=== PATIENT | female | born 1990 | race Caucasian/White ===

== ENCOUNTER 2016-08-19 14:41 | Emergency (ER) ==
[2016-08-19 14:51] VITALS: BP 127/82; TEMP 100.1; BMI 29.3
[2016-08-19] MEDS ORDERED: SODIUM CHLORIDE 1,000 ML IV STA (14:56)
--- NOTE | 2016-08-19 15:04 | ED.PDOC ---
General ED Provider: Dr. RONEL MULLINS Chief Complaint: Weakness Stated Complaint: Weak, light headed, nauseated. Working outdoors - hot, came indoors, felt worse. Time Seen by Physician: 14:55 Mode of Arrival: Walk-In Information Source: Patient Primary Care Provider: NAN [facility] Nursing and Triage Documentation Reviewed and Agree: Yes Neurological Complaint Exam - Weakness Complaint/Exam Last Known Well: 2 days ago Onset: Sudden Duration: Today; working outdoors - hot; is 7 weeks with morning sickness. Symptoms Are: Still present (Also had cough yesterday) Timing: Constant (Last few hours) Character: Reports: Lightheaded, Weak Aggravating: Reports: Exertion (Activity at work outdoors with hot environmental temperature today) Alleviating: Reports: None Associated Signs and Symptoms: Reports: Nausea, Unsteady gait, Loss of balance Cardiac Risk Factors: Reports: None CVA Risk Factors: Reports: None Review of Systems - Review Of Systems Constitutional: Reports: Malaise, Weakness, Sweats Ears, Nose, Mouth, Throat: Reports: No symptoms Respiratory: Reports: Cough (Yesterday) Cardiac: Reports: No symptoms GI: Reports: Nausea (Has had "morning sickness") Neurological: Reports: Headache All Other Systems: Reviewed and Negative Past Medical History - Past Medical History Previously Healthy: Yes Endocrine: Reports: None Cardiovascular: Reports: None Respiratory: Reports: None Hematological: Reports: None Gastrointestinal: Reports: None Genitourinary: Reports: None Neuro/Psych: Reports: None Musculoskeletal: Reports: None Cancer: Reports: None Last Menstrual Period: june 2016 - Surgical History General Surgical History: Reports: Cholecystectomy - Family History Family History: Reports: None - Social History Smoking Status: Current every day smoker, Light tobacco smoker Hx Substance Use: No Alcohol Screening: None Physical Exam - Physical Exam Appearance: Ill-appearing Ill-appearing: Mild Eyes: AYE, EOMI ENT: Nose normal, Oropharynx normal Neck: Supple Respiratory: Airway patent, Breath sounds clear, Respirations nonlabored Cardiovascular: RRR, Pulses normal GI/: Soft, Nontender Musculoskeletal: Normal strength, ROM intact Skin: Warm, Dry, Normal color Neurological: Sensation intact, Motor intact, Alert, Oriented Psychiatric: Affect appropriate Critical Care Note - Critical Care Note Total Time (mins): 25 Course - Course Orders, Labs, Meds: Lab Review 08/19/16 15:00 Urine Color Yellow Urine Clarity Slightly Urine pH 5.5 Ur Specific [place] 1.025 Urine Protein Negative Urine Glucose (UA) Negative Urine Ketones Negative Urine Blood Negative Urine Nitrite Negative Urine Bilirubin Negative Urine Urobilinogen 0.2 Ur Leukocyte Esterase Trace Urine Microscopic WBC 10-20 Ur Squamous Epith Cells 0-2 Urine Bacteria 2+ Orders Category Date Time Status URINALYSIS C & S IF INDICATED Stat LAB 08/19/16 15:00 Completed URINE CULTURE Routine LAB 08/19/16 15:50 Received Sodium Chloride 0.9% [Sodium Chloride] 1,000 ml MEDS 08/19/16 14:56 Discontinued IV BOLUS Medications Discontinued Medications Generic Name Dose Route Start Last Admin Trade Name Freq PRN Reason Stop Dose Admin Sodium Chloride 1,000 mls @ 1,000 mls/hr 08/19/16 14:56 08/19/16 15:20 Sodium Chloride IV 08/19/16 15:55 1,000 mls/hr BOLUS STA Administration Vital Signs: Temp Pulse Resp BP Pulse Ox 08/19/16 14:42 100.1 F H 113 H 20 127/82 98 Departure - Departure Time of Disposition: 16:13 Disposition: HOME SELF-CARE Discharge Problem: Dehydration Instructions: Dehydration (ED), Heat Exhaustion (ED) Condition: Good Pt referred to PMD for follow-up: Yes (Call; let them know how you are doing) Additional Instructions: Small amounts of fluids or jello frequently over next 12 hours. Call primary care to let them know of your ER visit. Take any medications that they have prescribed for you. At this time in the ER it does not appear that you have a Urinary Tract Infection. Allergies/Adverse Reactions: Allergies No Known Allergies Allergy (Unverified 08/19/16 14:52) Home Medications: Ambulatory Orders [id number]/FA/Omega3/Dha/Fish Oil [ Gummies] 1 each PO DAILY 08/19/16 Disposition Discussed With: Patient
[2016-08-19 15:37] LABS: BILIRUBIN,URINE Negative (NEGATIVE); KETONES,URINE Negative (NEGATIVE); LEUKOCYTE ESTERASE ,URINE Trace (NEGATIVE); NITRITE,URINE Negative (NEGATIVE); PH,URINE 5.5 (5-9); PROTEIN,URINE Negative (NEGATIVE); URINE, BLOOD Negative (NEGATIVE)
[2016-08-19 15:41] LABS: ADD URINE MICROSCOPIC YES
[2016-08-19 15:48] LABS: BACTERIA,URINE 2+ (NOT PRESENT)
== END 2016-08-19 16:29 | disposition home or self-care (01) ==
LOC: ED 14:41
DX: E86.0 Dehydration (principal); Z33.1 Pregnant state, incidental; F17.210 Nicotine dependence, cigarettes, uncomplicated
CPT/HCPCS: 81001; 87086; 87186; 96360; 99282

== ENCOUNTER 2016-09-02 11:12 | Emergency (ER) ==
[2016-09-02 11:17] VITALS: BP 131/70; TEMP 99.1; BMI 30.1
[2016-09-02 12:19] LABS: BILIRUBIN,URINE Negative (NEGATIVE); KETONES,URINE Negative (NEGATIVE); LEUKOCYTE ESTERASE ,URINE Negative (NEGATIVE); NITRITE,URINE Negative (NEGATIVE); PH,URINE 5.5 (5-9); PROTEIN,URINE Negative (NEGATIVE); URINE, BLOOD 1+ (NEGATIVE)
[2016-09-02 12:24] LABS: ADD URINE MICROSCOPIC YES
[2016-09-02 12:29] LABS: ALBUMIN 3.6 g/dL (3.4-5.0); ALBUMIN/GLOBULIN RATIO 1.2; ANION GAP 10.5; BILIRUBIN,TOTAL 0.36 mg/dL (0.00-1.20); BUN/CREATININE RATIO 22.03; CALCIUM 8.8 mg/dL (8.2-10.2); CREATININE 0.59 mg/dL (0.60-1.30); POTASSIUM 3.5 mmol/L (3.5-5.10); TOTAL PROTEIN 6.6 g/dL (6.4-8.2)
[2016-09-02 12:31] LABS: BACTERIA,URINE TRACE (NOT PRESENT)
--- NOTE | 2016-09-02 12:35 | US ---
EXAM: Ultrasound obstetrical transvaginal HISTORY: . Spotting COMPARISON: None available TECHNIQUE: Lawrence-scale and color Doppler images FINDINGS: Single intrauterine gestation noted with estimated gestational age of 6 weeks 1 day based on mean crown-rump length of 0.45 cm. No heart rate was susceptible. No color flow within th e pole identified. Yolk sac not seen. Amniotic fluid volume appears enlarged. Given the siz e of the pole. Uterus measures 8.5 x 5.1 x 5.9 cm. Right ovary measures 3.2 x 1.2 x 2 cm. Left ovary measures 3 x 1.9 x 2.1 cm. Both ovaries appear u nremarkable. No pelvic fluid collections or adnexal masses identified. IMPRESSION: Findings suspicious for intrauterine demise with no detectable cardiac activity, lack of yolk sac and large gestational sac. Correlate with beta HCG values and possible repeat ultrasound.
[2016-09-02 12:37] LABS: HEMATOCRIT 34.8 % (37.0-47.0); HEMOGLOBIN 12.1 g/dl (12.0-16.0); MEAN CORPUSCULAR HEMOGLOBIN 30.1 pg (27.0-31.0); MEAN CORPUSCULAR HGB CONC 34.8 (31.8-35.4); MEAN CORPUSCULAR VOLUME 86.6 fl (81.0-99.0); PLATELET COUNT 160 10^3/uL (140-440); RED BLOOD COUNT 4.02 10^6/ul (4.20-5.40)
[2016-09-02 12:38] LABS: ANISOCYTOSIS NOT PRESENT (NOT PRESENT)
[2016-09-02 13:54] LABS: PARTIAL THROMBOPLASTIN TIME 23.8 SEC (23.9-40.0); PROTHROMBIN TIME 10.2 SEC (9.3-11.0)
--- NOTE | 2016-09-02 13:54 | ED.PDOC ---
General ED Provider: Dr. TRENTON MAGAÑA Stated Complaint: VAGINAL SPOTTING Time Seen by Physician: 11:16 (SEEN WITH STAFF AT ALL TIMES NOTED MINOR BLEEDING AFTER INTERCOURSE 1 DAY AGO) Mode of Arrival: Walk-In Information Source: Patient Exam Limitations: No limitations Primary Care Provider: [facility] Nursing and Triage Documentation Reviewed and Agree: Yes (9 WEEKS FIRST ) CARE ADVOCATE Complaint Exam - Vaginal Bleeding Complaint/Exam Onset/Duration: 1 DAY DESCRIBED THE EXTENT OF BLEEDING TO HER USUAL MENSTURAL CYCLE Symptoms Are: Still present ([place]) Timing: Intermittent Initial Severity: Mild Current Severity: Mild Character: Reports: Dark red Aggravating: Reports: [place] Alleviating: Reports: Rest Associated Signs and Symptoms: Denies: Dizziness, Lightheadedness, Pale, UTI symptoms, Abdominal pain, Cramping, Generalized pain : 1 Para: 0 Ectopic Risk Factors: Reports: None Spontaneous AB Risk Factors: Reports: None Placental Abruption Risk Factors: Reports: None Patient Rh Status: Unknown Related Surgical History: Reports: None Abdominal Findings: Present: None Differential Diagnoses: Threatened AB, Incomplete AB Review of Systems - Review Of Systems Constitutional: Reports: No symptoms Eyes: Reports: No symptoms Ears, Nose, Mouth, Throat: Reports: No symptoms Respiratory: Reports: No symptoms Cardiac: Reports: No symptoms GI: Reports: No symptoms : Reports: Other (VAGINAL BLEEDING) Musculoskeletal: Reports: No symptoms Skin: Reports: No symptoms Neurological: Reports: No symptoms Endocrine: Reports: No symptoms Hematologic/Lymphatic: Reports: No symptoms All Other Systems: Reviewed and Negative Past Medical History - Past Medical History Previously Healthy: Yes Endocrine: Reports: None Cardiovascular: Reports: None Respiratory: Reports: None Hematological: Reports: None Gastrointestinal: Reports: None Genitourinary: Reports: None Neuro/Psych: Reports: None Musculoskeletal: Reports: None Cancer: Reports: None Last Menstrual Period: 06/17/16 - Surgical History General Surgical History: Reports: Cholecystectomy - Family History Family History: Reports: None - Social History Smoking Status: Current every day smoker, Light tobacco smoker Hx Substance Use: No Alcohol Screening: None Physical Exam - Physical Exam Appearance: Well-appearing, No pain distress, Well-nourished Eyes: AYE, EOMI, Conjunctiva clear ENT: Ears normal, Nose normal, Oropharynx normal Respiratory: Airway patent, Breath sounds clear, Breath sounds equal, Respirations nonlabored Cardiovascular: RRR, Pulses normal, No rub, No murmur GI/: Soft, Nontender, No masses, Bowel sounds normal, No Organomegaly Musculoskeletal: Normal strength, ROM intact, No edema, No calf tenderness Skin: Warm, Dry, Normal color Neurological: Sensation intact, Motor intact, Reflexes intact, Cranial nerves intact, Alert, Oriented Psychiatric: Affect appropriate, Mood appropriate Critical Care Note - Critical Care Note Total Time (mins): 0 Course - Course Hematology/Chemistry: 09/02/16 12:00 09/02/16 12:00 Orders, Labs, Meds: Lab Review 09/02/16 09/02/16 11:50 12:00 WBC 7.90 RBC 4.02 L Hgb 12.1 Hct 34.8 L MCV 86.6 MCH 30.1 MCHC 34.8 RDW Coeff of Edward 13.8 Plt Count 160 Neutrophils % (Manual) 82.0 H Lymphocytes % (Manual) 17.0 Monocytes % (Manual) 1.0 Anisocytosis Not present Sodium 138 Potassium 3.5 Chloride 107 Carbon Dioxide 24 Anion Gap 10.5 BUN 13 Creatinine 0.59 L Estimated GFR (MDRD) 124.00 BUN/Creatinine Ratio 22.03 Glucose 95 Calcium 8.8 Total Bilirubin 0.36 AST 15 ALT 15 Alkaline Phosphatase 49 Total Protein 6.6 Albumin 3.6 Globulin 3.0 Albumin/Globulin Ratio 1.20 HCG, Quant 9229.00 Urine Color Yellow Urine Clarity Clear Urine pH 5.5 Ur Specific [place] 1.025 Urine Protein Negative Urine Glucose (UA) Negative Urine Ketones Negative Urine Blood 1+ Urine Nitrite Negative Urine Bilirubin Negative Urine Urobilinogen 0.2 Ur Leukocyte Esterase Negative Urine Microscopic RBC 5-10 Urine Microscopic WBC 0-2 Ur Squamous Epith Cells 5-10 Amorphous Sediment Trace Urine Bacteria Trace Urine Mucus 1+ Orders Category Date Time Status CBC W/ AUTO DIFF Stat LAB 09/02/16 12:00 Completed COMPREHENSIVE METABOLIC PANEL Stat LAB 09/02/16 12:00 Completed HCG,QUANTITATIVE Stat LAB 09/02/16 12:00 Completed MANUAL DIFFERENTIAL Stat LAB 09/02/16 12:00 Completed PARTIAL THROMBOPLASTIN TIME Stat LAB 09/02/16 12:00 Received PT WITH INR Stat LAB 09/02/16 12:00 Received UA [URINALYSIS C & S IF INDICATED] Stat LAB 09/02/16 11:50 Completed ULTRASOUND OB/TV [U/S OB/TV] Stat RADS 09/02/16 11:28 Completed Vital Signs: Temp Pulse Resp BP Pulse Ox 09/02/16 11:13 99.1 F 94 H 16 131/70 98 Departure - Departure Time of Disposition: 13:55 (PT SEEN ALL TIMES WITH STAFF AND REPORT OF ULTRASOUND WAS GIVEN. PT WAS VERY UPSET ABOUT THE NEWS. AT 1:45PM MOTHER REQUESTED SECOND ULTRASOUND DURING WHICH TIME ANOTHER CRITICAL PT WAS BEING ASSESSED. I TOLD THE PT FAMILY THAT SECOND ULTRASOUND WAS NOT WARRANTED AT THIS TIME. HOWEVER I WOULD SPEAK TO OB AT [facility] AND WILL INFORM THEM SOON THIS CONTACT IS ACHIEVED. CHELSEA SPOKE TO FAMILY. THEY LEFT AMA. ) Disposition: AMA Discharge Problem: Bleeding from vagina Instructions: Peritonitis (ED), Miscarriage (ED) Condition: Good Pt referred to PMD for follow-up: Yes Allergies/Adverse Reactions: Allergies No Known Allergies Allergy (Verified 09/02/16 11:17) Home Medications: Ambulatory Orders [id number]/FA/Omega3/Dha/Fish Oil [ Gummies] 1 each PO DAILY 08/19/16
== END 2016-09-02 13:51 | disposition left against medical advice (07) ==
LOC: ED 11:12
DX: N93.9 Abnormal uterine and vaginal bleeding, unspecified (principal); Z33.1 Pregnant state, incidental
CPT/HCPCS: 36415; 80053; 81001; 84702; 85007; 85025; 85610; 85730; 99284

== ENCOUNTER 2016-10-11 12:19 | Inpatient (IN) ==
[2016-10-11] MEDS ORDERED: TYLENOL PO STA (12:48)
[2016-10-11] MEDS ORDERED: TYLENOL ONE (12:52)
[2016-10-11 13:13] LABS: BILIRUBIN,URINE Negative (NEGATIVE); KETONES,URINE Negative (NEGATIVE); LEUKOCYTE ESTERASE ,URINE 1+ (NEGATIVE); NITRITE,URINE Positive (NEGATIVE); PH,URINE 5.5 (5-9); PROTEIN,URINE 1+ (NEGATIVE); URINE, BLOOD 1+ (NEGATIVE)
[2016-10-11 13:20] LABS: BASOPHILS % (AUTO) 0.2 % (0.0-3.0); EOSINOPHILS % (AUTO) 0.1 % (0.0-7.0); HEMATOCRIT 38.6 % (37.0-47.0); HEMOGLOBIN 13.3 g/dl (12.0-16.0); IMMATURE GRANULOCYTE % (AUTO) 0.2 % (0.0-5.0); LYMPHOCYTES # (AUTO) 0.9 K/uL (0.60-3.4); LYMPHOCYTES % (AUTO) 10.2 (10.0-50.0); MEAN CORPUSCULAR HEMOGLOBIN 29.5 pg (27.0-31.0); MEAN CORPUSCULAR HGB CONC 34.5 (31.8-35.4); MEAN CORPUSCULAR VOLUME 85.6 fl (81.0-99.0); MONOCYTES # (AUTO) 0.7 K/uL (0.4-2.0); MONOCYTES % (AUTO) 8.2 (0-10); NEUTROPHILS # (AUTO) 6.7 K/ul (2.0-6.9); NEUTROPHILS % (AUTO) 81.1; PLATELET COUNT 165 10^3/uL (140-440); RED BLOOD COUNT 4.51 10^6/ul (4.20-5.40)
[2016-10-11 13:23] LABS: ADD URINE MICROSCOPIC YES
[2016-10-11 13:25] LABS: BACTERIA,URINE 4+ (NOT PRESENT)
[2016-10-11 13:28] LABS: ALBUMIN 3.7 g/dL (3.4-5.0); ALBUMIN/GLOBULIN RATIO 0.9; ANION GAP 14.9; BILIRUBIN,TOTAL 0.54 mg/dL (0.00-1.20); BUN/CREATININE RATIO 16.04; CALCIUM 9.6 mg/dL (8.2-10.2); CREATININE 0.81 mg/dL (0.60-1.30); POTASSIUM 3.9 mmol/L (3.5-5.10); TOTAL PROTEIN 7.8 g/dL (6.4-8.2)
[2016-10-11 13:29] LABS: SERUM PREGNANCY INTERNAL QC INTERNAL QC VALID
--- NOTE | 2016-10-11 13:53 | CT ---
Exam: CT abdomen and pelvis without IV contrast. Clinical indication: Abdominal pain. There are no prior studies available for comparison. TECHNIQUE: Axial unenhanced CT images of the abdomen and pelvis were obtained followed by coronal a nd sagittal reformats. The visualized portions of the lower thorax are within normal limits. There is no free intra-abdominal gas or fluid. There has been a prior cholecystectomy. The liver, adrenals, pancreas, and spleen are unremarkable, given the limitations of an unenhanced C T. There is some perinephric stranding around the right kidney around the proximal aspect of the right ureter. There is no obvious hydronephrosis. There are no definite renal calculi bilaterally, along the course of the bilateral ureters or within the urinary bladder. The bilateral kidneys are other campos unremarkable, given the limitations of an unenhanced CT. There are no enlarged abdominal or pelvic lymph nodes, by size criteria. The pelvic organs are grossly unremarkable, given the limitations of CT for evaluating them. The bowel, including the appendix, is unremarkable. The visualized bony structures are unremarkable for the patient's age. Impression: 1. Perinephric stranding around the right kidney which is a nonspecific finding and can be seen in the acute and chronic setting. In the acute setting this sometimes can be associated with inflammat ion such as infection. In the chronic setting and is of no clinical significance. 2. Otherwise unremarkable CT of the abdomen and pelvis, given the limitations of an unenhanced CT.
--- NOTE | 2016-10-11 13:54 | CT ---
Exam: CT lumbar spine without IV contrast. Clinical indication: Back pain. TECHNIQUE: Axial unenhanced CT images of the lumbar spine from the lower thoracic spine through the upper sacrum were obtained followed by coronal and sagittal reformats. Findings: There are five non-rib bearing lumbar vertebra. The alignment of the lumbar spine is within normal limits. There are no acute lumbar fractures. The disc spaces are well maintained. Although levels are within normal limits for the patient's age , without spinal stenosis or neural foraminal narrowing. The soft tissues were dictated separately. Impression: Unremarkable CT lumbar spine.
[2016-10-11] MEDS ORDERED: NORCO 10-325 PO STA (14:18)
--- NOTE | 2016-10-11 14:26 | ED.PDOC ---
General ED Provider: Dr. TRENTON MAGAÑA Chief Complaint: Fever Stated Complaint: back pain lumbar /fever Time Seen by Physician: 12:30 Mode of Arrival: Walk-In Information Source: Patient Exam Limitations: No limitations Primary Care Provider: NAN [facility] Nursing and Triage Documentation Reviewed and Agree: Yes Musculoskeletal Complaint Exam - Back Pain Complaint/Exam Mechanism of Injury: Reports: No known trauma Onset/Duration: 1 day Symptoms Are: Still present Timing: Constant Episodes Lasting: Hours Initial Severity: Moderate Current Severity: Moderate Character: Reports: Aching Aggravating: Reports: Cough Alleviating: Reports: Rest, Position Associated Signs and Symptoms: Reports: Fever, Flank pain. Denies: Swelling, Redness, Bruising, Weakness, Numbness, Tingling, Abdominal pain, Bladder incontinence, Bowel incontinence, Weight loss, Pain with weight bearing TAD Risk Factors: Reports: None AAA Risk Factors: Reports: None Cauda Equina Risk Factors: Reports: None Epidural Abcess Risk Factors: Reports: None Related Surgical History: Reports: None Focal Tenderness: No Paraspinal Muscle Tenderness: No Paraspinal Muscle Spasm: No Scoliosis: No Lordosis: No Kyphosis: No SLR Test: Right Negative, Left Negative Hip Motion Testing Pain: Right Negative, Left Negative Focal Weakness: Present: None Focal Sensory Loss: Present: None Gait: Present: Normal Differential Diagnoses: Epidural Abcess, Renal Colic (uti), Strain, Sprain Review of Systems - Review Of Systems Constitutional: Reports: Fever, Malaise Eyes: Reports: No symptoms Ears, Nose, Mouth, Throat: Reports: No symptoms Respiratory: Reports: No symptoms Cardiac: Reports: No symptoms GI: Reports: No symptoms : Reports: Dysuria, Flank pain Musculoskeletal: Reports: Back pain Skin: Reports: No symptoms Neurological: Reports: No symptoms Endocrine: Reports: No symptoms Hematologic/Lymphatic: Reports: No symptoms All Other Systems: Reviewed and Negative Past Medical History - Past Medical History Previously Healthy: Yes Endocrine: Reports: None Cardiovascular: Reports: None Respiratory: Reports: None Hematological: Reports: None Gastrointestinal: Reports: None Genitourinary: Reports: None Neuro/Psych: Reports: None Musculoskeletal: Reports: None Cancer: Reports: None Last Menstrual Period: just finished - Surgical History General Surgical History: Reports: Cholecystectomy - Family History Family History: Reports: None - Social History Smoking Status: Current every day smoker, Heavy tobacco smoker Hx Substance Use: No Alcohol Screening: None Physical Exam - Physical Exam Appearance: Well-appearing, No pain distress, Well-nourished Eyes: AYE, EOMI, Conjunctiva clear ENT: Ears normal, Nose normal, Oropharynx normal Respiratory: Airway patent, Breath sounds clear, Breath sounds equal, Respirations nonlabored Cardiovascular: RRR, Pulses normal, No rub, No murmur GI/: Soft, Nontender, No masses, Bowel sounds normal, No Organomegaly Musculoskeletal: Normal strength, ROM intact, No edema, No calf tenderness Skin: Warm, Dry, Normal color Neurological: Sensation intact, Motor intact, Reflexes intact, Cranial nerves intact, Alert, Oriented Psychiatric: Affect appropriate, Mood appropriate Physician Notification - Case Discussed Physician Notified: sandee Time of Notification: 14:25 Admit To: Inpatient Critical Care Note - Critical Care Note Total Time (mins): 0 Course - Course Hematology/Chemistry: 10/11/16 13:00 10/11/16 13:00 Orders, Labs, Meds: Lab Review 10/11/16 10/11/16 12:40 13:00 WBC 8.30 RBC 4.51 Hgb 13.3 Hct 38.6 MCV 85.6 MCH 29.5 MCHC 34.5 RDW Coeff of Edward 13.1 Plt Count 165 Immature Gran % (Auto) 0.2 Neut % (Auto) 81.1 Lymph % (Auto) 10.2 [place] % (Auto) 8.2 Eos % (Auto) 0.1 Baso % (Auto) 0.2 Immature Gran # (Auto) 0.0 Neut # 6.7 Lymph # 0.9 [place] # 0.7 Eos # 0.0 Baso # 0.0 Sodium 137 Potassium 3.9 Chloride 104 Carbon Dioxide 22 Anion Gap 14.9 BUN 13 Creatinine 0.81 Estimated GFR (MDRD) 86.00 BUN/Creatinine Ratio 16.04 Glucose 93 Lactic Acid 11.4 Calcium 9.6 Total Bilirubin 0.54 AST 14 L ALT 14 Alkaline Phosphatase 80 Total Protein 7.8 Albumin 3.7 Globulin 4.1 Albumin/Globulin Ratio 0.90 Procalcitonin 0.09 Serum , Qual Negative Urine Color Yellow Urine Clarity Cloudy Urine pH 5.5 Ur Specific [place] 1.020 Urine Protein 1+ Urine Glucose (UA) Negative Urine Ketones Negative Urine Blood 1+ Urine Nitrite Positive Urine Bilirubin Negative Urine Urobilinogen 0.2 Ur Leukocyte Esterase 1+ Urine Microscopic RBC 5-10 Urine Microscopic WBC 20-30 Ur Squamous Epith Cells Not present Urine Bacteria 4+ Orders Category Date Time Status ADMIT PATIENT INPATIENT .TO [facility] (NON-MONITORED ADMISSION 10/11/16 14: 20 Active BED) ACTIVITY .BR with [facility] CARE 10/11/16 14:20 Active INTAKE & OUTPUT Q8HR CARE 10/11/16 14:20 Active VITAL SIGNS Q8HR CARE 10/11/16 14:20 Active REGULAR DIET DIETARY 10/11/16 Dinner Ordered BLOOD CULTURE Stat LAB 10/11/16 13:00 Received CBC W/ AUTO DIFF DAILY@0600 LAB 10/12/16 06:00 Ordered CBC W/ AUTO DIFF DAILY@0600 LAB 10/13/16 06:00 Ordered CBC W/ AUTO DIFF DAILY@0600 LAB 10/14/16 06:00 Ordered CBC W/ AUTO DIFF DAILY@0600 LAB 10/15/16 06:00 Ordered CBC W/ AUTO DIFF DAILY@0600 LAB 10/16/16 06:00 Ordered CBC W/ AUTO DIFF DAILY@0600 LAB 10/17/16 06:00 Ordered CBC W/ AUTO DIFF DAILY@0600 LAB 10/18/16 06:00 Ordered CBC W/ AUTO DIFF DAILY@0600 LAB 10/19/16 06:00 Ordered CBC W/ AUTO DIFF DAILY@0600 LAB 10/20/16 06:00 Ordered CBC W/ AUTO DIFF DAILY@0600 LAB 10/21/16 06:00 Ordered CBC W/ AUTO DIFF DAILY@0600 LAB 10/22/16 06:00 Ordered CBC W/ AUTO DIFF DAILY@0600 LAB 10/23/16 06:00 Ordered CBC W/ AUTO DIFF DAILY@0600 LAB 10/24/16 06:00 Ordered CBC W/ AUTO DIFF DAILY@0600 LAB 10/25/16 06:00 Ordered CBC W/ AUTO DIFF DAILY@0600 LAB 10/26/16 06:00 Ordered CBC W/ AUTO DIFF DAILY@0600 LAB 10/27/16 06:00 Ordered CBC W/ AUTO DIFF DAILY@0600 LAB 10/28/16 06:00 Ordered CBC W/ AUTO DIFF DAILY@0600 LAB 10/29/16 06:00 Ordered CBC W/ AUTO DIFF DAILY@0600 LAB 10/30/16 06:00 Ordered CBC W/ AUTO DIFF DAILY@0600 LAB 10/31/16 06:00 Ordered CBC W/ AUTO DIFF Stat LAB 10/11/16 13:00 Completed COMPREHENSIVE METABOLIC PANEL DAILY@0600 LAB 10/12/16 06:00 Ordered COMPREHENSIVE METABOLIC PANEL DAILY@0600 LAB 10/13/16 06:00 Ordered COMPREHENSIVE METABOLIC PANEL DAILY@0600 LAB 10/14/16 06:00 Ordered COMPREHENSIVE METABOLIC PANEL DAILY@0600 LAB 10/15/16 06:00 Ordered COMPREHENSIVE METABOLIC PANEL DAILY@0600 LAB 10/16/16 06:00 Ordered COMPREHENSIVE METABOLIC PANEL DAILY@0600 LAB 10/17/16 06:00 Ordered COMPREHENSIVE METABOLIC PANEL DAILY@0600 LAB 10/18/16 06:00 Ordered COMPREHENSIVE METABOLIC PANEL DAILY@0600 LAB 10/19/16 06:00 Ordered COMPREHENSIVE METABOLIC PANEL DAILY@0600 LAB 10/20/16 06:00 Ordered COMPREHENSIVE METABOLIC PANEL DAILY@0600 LAB 10/21/16 06:00 Ordered COMPREHENSIVE METABOLIC PANEL DAILY@0600 LAB 10/22/16 06:00 Ordered COMPREHENSIVE METABOLIC PANEL DAILY@0600 LAB 10/23/16 06:00 Ordered COMPREHENSIVE METABOLIC PANEL DAILY@0600 LAB 10/24/16 06:00 Ordered COMPREHENSIVE METABOLIC PANEL DAILY@0600 LAB 10/25/16 06:00 Ordered COMPREHENSIVE METABOLIC PANEL DAILY@0600 LAB 10/26/16 06:00 Ordered COMPREHENSIVE METABOLIC PANEL DAILY@0600 LAB 10/27/16 06:00 Ordered COMPREHENSIVE METABOLIC PANEL DAILY@0600 LAB 10/28/16 06:00 Ordered COMPREHENSIVE METABOLIC PANEL DAILY@0600 LAB 10/29/16 06:00 Ordered COMPREHENSIVE METABOLIC PANEL DAILY@0600 LAB 10/30/16 06:00 Ordered COMPREHENSIVE METABOLIC PANEL DAILY@0600 LAB 10/31/16 06:00 Ordered COMPREHENSIVE METABOLIC PANEL Stat LAB 10/11/16 13:00 Completed LACTIC ACID Stat LAB 10/11/16 13:00 Completed PROCALCITONIN Stat LAB 10/11/16 13:00 Completed SERUM Stat LAB 10/11/16 13:00 Completed URINALYSIS C & S IF INDICATED Stat LAB 10/11/16 12:40 Completed URINE CULTURE Routine LAB 10/11/16 12:40 Received Acetaminophen [Tylenol] MEDS 10/11/16 12:52 Discontinued 1,000 mg .ROUTE .STK-MED ONE Acetaminophen [Tylenol] MEDS 10/11/16 12:48 Discontinued 1,000 mg PO ONCE STA Ceftriaxone Sodium [Rocephin] 1 gm MEDS 10/12/16 09:00 Ordered 0.9 % Sodium Chloride [Sodium Chloride] 50 ml IV DAILY Hydrocodone Bit/Acetaminophen [Worden 10-325] MEDS 10/11/16 14:18 Discontinued 1 tab PO ONCE STA Sodium Chloride 0.9% [Sodium Chloride] 1,000 ml MEDS 10/11/16 14:30 Ordered IV 75 mls/hr CT ABDOMEN/PELVIS WO CONTRAST Stat RADS 10/11/16 12:[address] LUMBAR SPINE W/O CONTRAST Stat RADS 10/11/16 12:47 Completed Medications Generic Name Dose Route Start Last Admin Trade Name Freq PRN Reason Stop Dose Admin Ceftriaxone Sodium 1 gm/ 50 mls @ 75 mls/hr 10/12/16 09:00 Sodium Chloride IV DAILY SUSAN Sodium Chloride 1,000 mls @ 75 mls/hr 10/11/16 14:30 Sodium Chloride IV .[id number] SUSAN Discontinued Medications Generic Name Dose Route Start Last Admin Trade Name Freq PRN Reason Stop Dose Admin Acetaminophen 1,000 mg 10/11/16 12:48 10/11/16 12:56 Tylenol PO 10/11/16 12:49 Not Given ONCE STA Acetaminophen/Hydrocodone Bitart 1 tab 10/11/16 14:18 Worden 10-325 PO 10/11/16 14:19 ONCE STA Vital Signs: Temp Pulse Resp BP Pulse Ox 10/11/16 12:20 103.3 F H 117 H 22 112/66 99 Departure - Departure Time of Disposition: 14:25 Disposition: ADMITTED INPATIENT Discharge Problem: Fever, Pyelonephritis Instructions: Urinary Tract Infection in Women (ED) Condition: Good Pt referred to PMD for follow-up: Yes Allergies/Adverse Reactions: Allergies No Known Allergies Allergy (Verified 10/11/16 12:29) Home Medications: Ambulatory Orders [id number]/FA/Omega3/Dha/Fish Oil [ Gummies] 1 each PO DAILY 08/19/16 Venlafaxine HCl [Effexor Xr] 37.5 mg PO BID 10/11/16 Disposition Discussed With: Patient
[2016-10-11] MEDS ORDERED: ROCEPHIN ONE (15:11)
[2016-10-11] MEDS: SODIUM CHLORIDE 1,000 ML IV SCH (15:19)
[2016-10-11 15:35] VITALS: BMI 27.2
[2016-10-11] MEDS ORDERED: NORCO 10-325 ONE (18:26)
[2016-10-11] MEDS: EFFEXOR XR PO SCH (20:35)
[2016-10-12] MEDS ORDERED: NORCO 10-325 PO STA (02:46)
[2016-10-12] MEDS: SODIUM CHLORIDE 1,000 ML IV SCH ×2 (04:13→17:21)
[2016-10-12 04:59] LABS: BASOPHILS % (AUTO) 0.3 % (0.0-3.0); EOSINOPHILS % (AUTO) 0.3 % (0.0-7.0); IMMATURE GRANULOCYTE % (AUTO) 0.3 % (0.0-5.0); LYMPHOCYTES # (AUTO) 1.4 K/uL (0.60-3.4); LYMPHOCYTES % (AUTO) 12.6 (10.0-50.0); MEAN CORPUSCULAR HEMOGLOBIN 29.8 pg (27.0-31.0); MEAN CORPUSCULAR HGB CONC 34.4 (31.8-35.4); MEAN CORPUSCULAR VOLUME 86.7 fl (81.0-99.0); MONOCYTES # (AUTO) 1.2 K/uL (0.4-2.0); MONOCYTES % (AUTO) 10.7 (0-10); NEUTROPHILS # (AUTO) 8.4 K/ul (2.0-6.9); NEUTROPHILS % (AUTO) 75.8; PLATELET COUNT 167 10^3/uL (140-440); RED BLOOD COUNT 3.69 10^6/ul (4.20-5.40); WHITE BLOOD COUNT 11.03 K/ul (4.6-10.2)
[2016-10-12 05:14] LABS: ALBUMIN 2.9 g/dL (3.4-5.0); ALBUMIN/GLOBULIN RATIO 0.88; ANION GAP 13.5; BILIRUBIN,TOTAL 0.33 mg/dL (0.00-1.20); BUN/CREATININE RATIO 17.64; CALCIUM 8.5 mg/dL (8.2-10.2); CREATININE 0.68 mg/dL (0.60-1.30); POTASSIUM 3.5 mmol/L (3.5-5.10); TOTAL PROTEIN 6.2 g/dL (6.4-8.2)
[2016-10-12] MEDS ORDERED: ZOFRAN 4 MG/2 ML IVP STA (05:58)
[2016-10-12] MEDS ORDERED: TYLENOL PO STA (08:27)
[2016-10-12] MEDS: ROCEPHIN 1 GM in SODIUM CHLORIDE 50 ML IV SCH (08:28)
[2016-10-12] MEDS: EFFEXOR XR PO SCH ×2 (08:28→20:52)
[2016-10-12] MEDS ORDERED: MORPHINE 2 MG/ML SYRINGE IVP PRN (12:36)
[2016-10-12] MEDS: ZOFRAN 4 MG/2 ML IVP PRN (21:01)
[2016-10-13 05:18] LABS: BASOPHILS % (AUTO) 0.3 % (0.0-3.0); EOSINOPHILS # (AUTO) 0.1 K/ul (0.0-0.7); EOSINOPHILS % (AUTO) 0.9 % (0.0-7.0); HEMATOCRIT 30.4 % (37.0-47.0); HEMOGLOBIN 10.3 g/dl (12.0-16.0); IMMATURE GRANULOCYTE % (AUTO) 0.3 % (0.0-5.0); LYMPHOCYTES # (AUTO) 1.8 K/uL (0.60-3.4); LYMPHOCYTES % (AUTO) 23.1 (10.0-50.0); MEAN CORPUSCULAR HEMOGLOBIN 29.2 pg (27.0-31.0); MEAN CORPUSCULAR HGB CONC 33.9 (31.8-35.4); MEAN CORPUSCULAR VOLUME 86.1 fl (81.0-99.0); MONOCYTES # (AUTO) 0.6 K/uL (0.4-2.0); MONOCYTES % (AUTO) 7.1 (0-10); NEUTROPHILS # (AUTO) 5.3 K/ul (2.0-6.9); NEUTROPHILS % (AUTO) 68.3; PLATELET COUNT 160 10^3/uL (140-440); RED BLOOD COUNT 3.53 10^6/ul (4.20-5.40); WHITE BLOOD COUNT 7.71 K/ul (4.6-10.2)
[2016-10-13 05:44] LABS: ALBUMIN 2.8 g/dL (3.4-5.0); ALBUMIN/GLOBULIN RATIO 0.93; ANION GAP 14.9; BILIRUBIN,TOTAL 0.22 mg/dL (0.00-1.20); BUN/CREATININE RATIO 14.75; CALCIUM 8.6 mg/dL (8.2-10.2); CREATININE 0.61 mg/dL (0.60-1.30); POTASSIUM 3.9 mmol/L (3.5-5.10); TOTAL PROTEIN 5.8 g/dL (6.4-8.2)
[2016-10-13] MEDS: SODIUM CHLORIDE 1,000 ML IV SCH ×2 (07:58→21:05)
[2016-10-13] MEDS ORDERED: FLEXERIL PO ONE (09:00)
[2016-10-13] MEDS: TORADOL IVP PRN (09:28)
[2016-10-13] MEDS: EFFEXOR XR PO SCH ×2 (09:46→20:30)
[2016-10-13] MEDS: ROCEPHIN 1 GM in SODIUM CHLORIDE 50 ML IV SCH (09:50)
--- NOTE | 2016-10-13 13:40 | HP ---
DATE OF SERVICE: 10/11/16 CHIEF COMPLAINT/HISTORY OF PRESENT ILLNESS: Fever and chills for 4 to 5 days, bodyaches. No vomiting. Right-sided flank pain , has been taking Tylenol and is not helping. The patient has history of frequent UTIs. She came to the emergency room for evaluation. The patient found to be dehydrated. Urine was positive for nitrites and leukocyte esterase. CT scan of abdomen and pelvis showed the right-sided perinephric stranding. At that time, the patient was admitted to the hospital with right pyelonephritis with fever of 103 for IV antibiotics, IV fluids and pain medication. REVIEW OF SYSTEMS: CONSTITUTIONAL: Weakness, tiredness, fever, chills. HEENT: Normal. ENDOCRINE: No weight gain; no weight loss. CVS: No chest pain. No PND, no orthopnea. No shortness of breath. No PND, no orthopnea. RESPIRATORY: No cough, no congestion. No hemoptysis. GI: Right flank pain. Nausea. No vomiting. No melena. : No hematuria. No polyuria. MUSCULOSKELETAL: No joint swelling. PSYCHIATRIC: Not anxious. No depression. No suicidal thoughts. No homicidal thoughts. SKIN: Intact, no open lesions. PAST MEDICAL HISTORY: 1. Recurrent UTI 2. Headaches 3. Nicotine use 4. Depression PAST SURGICAL HISTORY: 1. Bladder surgery as she had a defect 2. D & C September 03 3. Laproscopic cholecystectomy 2012 PERSONAL HISTORY: The patient smokes. No alcohol. No drug use. , lives with . FAMILY HISTORY: Significant for CHF, diabetes, breast cancer. MEDICATIONS: 1. Gummies 2. Effexor ALLERGIES: NKDA PHYSICAL EXAMINATION: V/S: BP 112/66, respiratory rate 22, heart rate 117, temperature 103.3. HEENT: Atraumatic, normocephalic. No scleral icterus. Sick-looking lady lying in bed not in any distress. Mucosa dry. Pallor positive. NECK: Supple. No JVD, no bruit. No lymphadenopathy. No thyromegaly. HEART: S1, S2 normal. No murmur. No cyanosis or clubbing. No ascites. LUNGS: Clear to auscultation. No rales or rhonchi. ABDOMEN: Right flank pain. Bowel sounds are sluggish. Right CVA tenderness positive. No rigidity or guarding. EXTREMITIES: No cyanosis, clubbing or pedal edema. MUSCULOSKELETAL: Normal joints, no swelling. NEUROLOGIC: The patient is awake, alert and oriented. SKIN: Intact; no open lesions. LYMPHATIC: No lymph nodes palpable. LABS: White count 8.30, hemoglobin 13.3, hematocrit 38.6, platelet count 165. Sodium 137, potassium 3.9, chloride 104, bicarb 22, BUN 13, creatinine 0.81, glucose 93. Urine negative. Urine 4+ bacteria, leukocyte esterase and nitrites are positive. ASSESSMENT: 1. ACUTE RIGHT PYELONEPHRITIS 2. DEHYDRATION 3. DEPRESSION/ANXIETY 4. NICOTINE USE 5. RECENT D & C August PLAN: 1. Admit the patient to the regular floor. 2. CBC, CMP today and daily 3. IV fluids 75 mL/hr 4. Rocephin 1 gm daily 5. Tylenol for fever 6. Blood cultures if they are not done 7. Daily I & O's. TIME SPENT: MORE THAN 70 minutes MTDD
--- NOTE | 2016-10-13 13:58 | PN ---
DATE OF SERVICE: 10/12/16 SUBJECTIVE: The patient was admitted yesterday with right pyelonephritis. The patient did have a fever of 100.2 early in the morning and yesterday evening 100 again. Right flank pain is still present. The patient had a lot of concerns as she has frequent urinary tract infections for a long time, on and off. She is worried about that. She has not see a urologist lately. REVIEW OF SYSTEMS: CONSTITUTIONAL: No fever, no chills. HEENT: Normal. ENDOCRINE: No weight gain, no weight loss. CVS: No angina symptoms. No CHF symptoms. No palpitations. No atypical chest pain for CAD. No shortness of breath. No PND, no orthopnea. RESPIRATORY: No cough, no hemoptysis. GI: No nausea, no vomiting. No abdominal pain. : No hematuria. No polyuria. MUSCULOSKELETAL:. No joint swelling. PSYCHIATRIC: Not anxious. No depression. No suicidal thoughts. No homicidal thoughts. SKIN: Intact. No rash. PHYSICAL EXAMINATION: V/S: BP 106/58, respiratory rate 18, heart rate 82, temperature 98.8. HEENT: Normocephalic, atraumatic. Mucosa dry. Pallor positive. No icterus. NECK: Supple. No JVD, no carotid bruit. No lymphadenopathy. LUNGS: Clear to auscultation. No rales or rhonchi. HEART: S1, S2 normal. No S3. No murmur, gallop or regurgitation. ABDOMEN: Soft, nontender. Bowel sounds active. No rigidity. No rebound or guarding. Right CVA tenderness is present. EXTREMITIES: No clubbing, cyanosis or pedal edema. MUSCULOSKELETAL: No joint swelling. NEUROLOGIC: Awake, alert, oriented times three. No focal deficit. LYMPHATIC: No lymph nodes palpable. SKIN: Intact. LABS: White count 11.03, hemoglobin 11.0, hematocrit 32.0. Platelet count 167. Sodium 139, potassium 3.5, chloride 105, bicarb 24, BUN 12, creatinine 0.68, glucose 104. ASSESSMENT: 1. ACUTE RIGHT PYELONEPHRITIS/GRAM NEGATIVE RODS 2. ANEMIA 3. DEHYDRATION 4. ANXIETY/DEPRESSION 5. NICOTINE USE PLAN: 1. Continue Rocephin 1 gm daily 2. Morphine 2 mg q.6hr p.r.n. for pain along with Zofran 3. Continue IV fluids at 75 mL/hr TIME SPENT: More than 35 minutes MTDD
[2016-10-14] MEDS: TORADOL IVP PRN (05:04)
[2016-10-14 05:09] LABS: BASOPHILS % (AUTO) 0.3 % (0.0-3.0); EOSINOPHILS # (AUTO) 0.2 K/ul (0.0-0.7); HEMATOCRIT 30.7 % (37.0-47.0); HEMOGLOBIN 10.5 g/dl (12.0-16.0); IMMATURE GRANULOCYTE % (AUTO) 0.3 % (0.0-5.0); LYMPHOCYTES % (AUTO) 29.5 (10.0-50.0); MEAN CORPUSCULAR HEMOGLOBIN 29.7 pg (27.0-31.0); MEAN CORPUSCULAR HGB CONC 34.2 (31.8-35.4); MONOCYTES # (AUTO) 0.4 K/uL (0.4-2.0); MONOCYTES % (AUTO) 6.6 (0-10); NEUTROPHILS % (AUTO) 60.3; PLATELET COUNT 198 10^3/uL (140-440); RED BLOOD COUNT 3.53 10^6/ul (4.20-5.40); WHITE BLOOD COUNT 6.68 K/ul (4.6-10.2)
[2016-10-14 05:40] LABS: ALBUMIN 2.7 g/dL (3.4-5.0); ALBUMIN/GLOBULIN RATIO 0.87; ANION GAP 15.2; BILIRUBIN,TOTAL 0.15 mg/dL (0.00-1.20); BUN/CREATININE RATIO 15.62; CALCIUM 8.5 mg/dL (8.2-10.2); CREATININE 0.64 mg/dL (0.60-1.30); POTASSIUM 4.2 mmol/L (3.5-5.10); TOTAL PROTEIN 5.8 g/dL (6.4-8.2)
[2016-10-14 05:49] VITALS: BP 104/71; TEMP 97.6
[2016-10-14] MEDS: ZOFRAN 4 MG/2 ML IVP PRN (07:41)
--- NOTE | 2016-10-16 08:19 | PN ---
DATE OF SERVICE: 10/13/16 SUBJECTIVE: The patient is a 25 year old female admitted with the right sided acute pyelonephritis. She had been sitting in the bed crying says that she is hurting more and the pain is going to the right flank area, no fever over the night. The patient's mother is in the room. REVIEW OF SYSTEMS: CONSTITUTIONAL: No night sweats. No fatigue, malaise, lethargy. No fever or chills. HEENT: Eyes: No visual changes. No eye pain. No eye discharge. ENT: No runny nose. No epistaxis. No sinus pain. No sore throat. No odynophagia. No congestion. RESPIRATORY: No cough, no congestion. No hemoptysis. No shortness of breath. CARDIOVASCULAR: No angina symptoms. No CHF symptoms. No atypical chest pain for CAD. No palpitations. No orthopnea. GASTROINTESTINAL: No abdominal pain. No nausea or vomiting. No diarrhea or constipation. No hematemesis. No hematochezia. GENITOURINARY: No urgency. No frequency. No dysuria. No hematuria. No obstructive symptoms. No discharge. No pain. No significant abnormal bleeding. MUSCULOSKELETAL: No musculoskeletal pain; no joint swelling. NEUROLOGICAL: No headache. No neck pain. No syncope. No seizures. No dizziness. PSYCHIATRIC: Not anxious. No depression. No suicidal thoughts. No homicidal thoughts. SKIN: No rash. No lesions. No wounds. ENDOCRINE: No unexplained weight loss. No weight gain. HEMATOLOGIC/LYMPHATIC: No anemia. No purpura. No petechiae. No prolonged or excessive bleeding. No palpable lymph nodes. PHYSICAL EXAMINATION: VITAL SIGNS: Blood pressure 106/58, respiratory rate 18, heart rate 82, temperature 98.8. The patient had last fever on 10/12/16. HEENT: Head normocephalic, atraumatic. Eyes: Extraocular muscles are intact. Pupils are equal, round and reactive to light and accommodation. Ears: No lesions. Nose appeared normal. Throat: No exudate or erythema. NECK: Supple. No JVD, no carotid bruit. No lymphadenopathy or thyromegaly. LUNGS: Clear to auscultation. Percussion note normal. Chest symmetrical. HEART: S1, S2, no S3. No murmurs. No cyanosis or clubbing. No ascites. Pulses: Dorsalis pedis and posterior tibial pulses +1 to +2 both sides. ABDOMEN: Soft. Right flank pain present. Bowel sounds active. Right CVA tenderness. No mass felt. EXTREMITIES: No edema. Full range of motion of all extremities, equal. NEUROLOGIC: No focal deficit. Cranial nerves II through XII are grossly intact. No headache, no double vision or headache. SKIN: Not dry. Intact. Turgor - normal. LYMPHATIC: No palpable lymph nodes/no lymphedema. MUSCULOSKELETAL: Normal joints with no swelling. Muscle tone is normal. LABS: WBC 7.71, hgb 10.3, hct 30.4, plt count 160, sodium 141, potassium 3.9, chloride 106, bicarb 24, BUN 9, creatinine 0.61. ASSESSMENT: 1. Acute right sided pyelonephritis, organism secondary to gram negative rods 2. Anemia 3. History of migraine headache 4. Recent Miscarriage, August 2016 PLAN: 1. Continue the Rocephin 1 gram daily 2. IV fluids 3. Morphine for the pain 4. Zofran from the nausea and vomiting. TIME SPENT: More than 35 minutes. Plan and coordination of the patient's care discussed in the presence of nurse. AUGIE
--- NOTE | 2016-10-26 14:54 | DS ---
DATE OF SERVICE: 10/14/16 FINAL DIAGNOSIS: 1. ACUTE RIGHT-SIDED PYELONEPHRITIS, ORGANISM E. COLI SENSITIVE TO MOST HOME MEDICATIONS 2. ANEMIA 3. STATUS POST LAPAROSCOPIC CHOLECYSTECTOMY 2012 4. D & C, SEPTEMBER 03, 2016 5. MISCARRIAGE, SEPTEMBER 03, 2016 6. HISTORY OF BLADDER SURGERY DISCHARGE INSTRUCTIONS: 1. Discharge the patient home MEDICATIONS AT DISCHARGE: 1. vitamins 2. Effexor NEW PRESCRIPTIONS: 1. Macrodantin 100 mg twice a day to take with food 2. Probiotics as antibiotics can cause diarrhea DIET INSTRUCTIONS: Regular diet. ACTIVITY: As much as tolerated. DISEASE SPECIFIC EDUCATION: About the recurrent UTI and kidney infections was discussed with the patient. She verbalized understanding. HOSPITAL COURSE: Shanice Benson is a 25 year old female who came to the emergency room with frequency and blood in the urine, pain right sided flank. She was seen by Dr. House in the emergency room. Her white count was normal with a CT of the abdomen and pelvis showing the right sided perinephric stranding and urine was positive for nitrites and the leukocyte esterase. The patient had a fever of 103.3. At that time, the patient is admitted to the hospital with acute right sided pyelonephritis for IV fluids, pain management and antibiotics. She was started on Rocephin. IV fluids were given. No DVT prophylaxis as the patient was mobilized early. Morphine for the pain and Zofran was given. Gradually, the patient started feeling better. The fever has subsided. Hemoglobin dropped to 11 and 11.0 and 10.3, which was stable. Meanwhile, the patient was up and about, walking. Microbiology came back as e.coli, not ESBL. As the urine was sensitive to the Macrodantin, the patient was started on the Macrodantin and discharged home. TIME SPENT: MORE THAN 55 MINUTES TODAY. MTDD
== END 2016-10-14 08:30 | disposition home or self-care (01) | DRG 690 ==
LOC: ED 12:19 → MEDSURG A 14:28
PROVIDERS: ADMIT Emergency Medicine; ATTEND Emergency Medicine
DX: N10 Acute pyelonephritis (principal); R50.9 Fever, unspecified; M54.5 Low back pain; B96.20 Unspecified Escherichia coli [E. coli] as the cause of diseases classified elsewhere; E86.0 Dehydration; D64.9 Anemia, unspecified; F41.8 Other specified anxiety disorders; F17.200 Nicotine dependence, unspecified, uncomplicated; Z16.11 Resistance to penicillins; Z86.69 Personal history of other diseases of the nervous system and sense organs; Z87.440 Personal history of urinary (tract) infections; Z87.898 Personal history of other specified conditions; Z98.890 Other specified postprocedural states
CPT/HCPCS: 36415; 80053; 81001; 83605; 84145; 84703; 85025; 87040; 87086; 87186; 99284

== ENCOUNTER 2017-01-11 08:46 | Outpatient (CLI) ==
--- NOTE | 2017-01-11 09:47 | US ---
: Lawrence-scale and color Doppler ultrasonographic evaluation of the thyroid. Comparison: None available. Reason for exam: Dysphagia. FINDINGS: The right thyroid lobe measures approximately 5.58 x 1.09 x 1.83 cm with normal appearing echotexture and normal vascular flow. There is a complex appearing nodule in the mid right thyroid l obe measuring 0.37 x 0.26 x 0.18 cm. The isthmus measures approximately 0.34 cm. The left thyroid lobe measures approximately 4.96 x 1.53 x 1.51 cm with a normal appearing echotextur e and normal vascular flow. Pressure: 1. Sub centimeter complex appearing nodule in the right thyroid lobe. Recommend follow-up ultrasound evaluation to document stability. 2. The left thyroid lobe is unremarkable.
== END 2017-01-11 08:47 | disposition home or self-care (01) ==
LOC: RAD 08:46
PROVIDERS: ATTEND Physician Assistant
DX: R13.10 Dysphagia, unspecified (principal)

== ENCOUNTER 2017-02-03 15:11 | Outpatient (CLI) | END 2017-02-03 15:12 | disposition home or self-care (01) | LOC: LAB 15:11 | PROVIDERS: ATTEND Physician Assistant | DX: E04.1 Nontoxic single thyroid nodule (principal) | CPT/HCPCS: 36415; 84443 ==

== ENCOUNTER 2017-03-22 12:20 | Outpatient (CLI) | END 2017-03-22 12:21 | disposition home or self-care (01) | LOC: LAB 12:20 | PROVIDERS: ATTEND Physician Assistant | DX: O21.9 Vomiting of pregnancy, unspecified (principal) | CPT/HCPCS: 36415; 80053; 81001; 84443; 84702; 85027 ==

== ENCOUNTER 2017-03-25 08:44 | Emergency (ER) ==
[2017-03-25 09:04] VITALS: BP 120/68; TEMP 99.2; BMI 31.5
--- NOTE | 2017-03-25 09:34 | ED.PDOC ---
General ED Provider: Dr. DALLAS BOUDREAUX Chief Complaint: Stated Complaint: Complains epigastric pain and persistent nausea and vomiting for past 24 hrs. Had similar pain for past 2 months and her PCP was going to rule out but then it was discovered she had a positive UCG/HCG on mar 16 when she was seeing her urologist in [place] for persistent bladder problems.Has appt with structural drafter on Mar 31 at [facility] in [place]. States she has had morning sickness and worsening mid epigastric abdominal pain plus having Black tarry stools as well. States "I know I have an ulcer" Past history is postive for Systemic Lupus which was diagnosed this past September after she had a spontaneous . Mother states she is treated with Plaquenil. Time Seen by Physician: 09:10 Mode of Arrival: Walk-In Information Source: Patient Primary Care Provider: RICCARDO ALAN Nursing and Triage Documentation Reviewed and Agree: Yes Reviewed sepsis parameters & appropriate labs ordered?: Yes System Inflammatory Response Syndrome: Not Applicable Sepsis Protocol: For patient's 13 years and over: Temp is 96.8 and below OR 101 and greater Pulse >90 BPM Resp >20/minute Acutely Altered Mental Status Are patient's symptoms suggestive of a new infection, such as: -Pneumonia -Skin, Soft Tissue -Endocarditis -UTI -Bone, Joint Infection -Implantable Device -Acute Abdominal Infection -Wound Infection -Meningitis -Blood Stream Catheter Infection -Unknown System Inflammatory Response Syndrome: Not Applicable Review of Systems - Review Of Systems Constitutional: Reports: Malaise, Weakness, Loss of appetite Eyes: Reports: No symptoms Ears, Nose, Mouth, Throat: Reports: No symptoms Respiratory: Reports: No symptoms Cardiac: Reports: No symptoms GI: Reports: Abdominal pain, Nausea, Vomiting : Reports: No symptoms Musculoskeletal: Reports: No symptoms Skin: Reports: No symptoms Neurological: Reports: No symptoms Endocrine: Reports: No symptoms Hematologic/Lymphatic: Reports: No symptoms All Other Systems: Other (Collagen Vascular-SLE) Past Medical History - Past Medical History Previously Healthy: Yes Endocrine: Reports: None Cardiovascular: Reports: None Respiratory: Reports: None Hematological: Reports: None Gastrointestinal: Reports: None Genitourinary: Reports: None Neuro/Psych: Reports: None Musculoskeletal: Reports: None, Other (Lupus) Cancer: Reports: None Last Menstrual Period: feb 13 - Surgical History General Surgical History: Reports: Cholecystectomy - Family History Family History: Reports: None - Social History Smoking Status: Current every day smoker, Light tobacco smoker Hx Substance Use: No Alcohol Screening: None Physical Exam - Physical Exam Appearance: Ill-appearing, Obese Ill-appearing: Moderate Pain Distress: Moderate Eyes: AYE, EOMI, Conjunctiva clear ENT: Ears normal, Nose normal, Erythema Respiratory: Airway patent, Breath sounds clear, Breath sounds equal Cardiovascular: RRR, Pulses normal, No rub, No murmur GI/: Soft, Tender, Bowel sounds hyperactive (No guarding ) Musculoskeletal: Normal strength Skin: Warm, Dry, Normal color Neurological: Sensation intact, Motor intact, Reflexes intact Re-Evaluation - Re-Evaluation Time of Re-Evaluation: 12:00 Status: Improved Vital Signs Stable: Yes Appearance: NAD Lungs: Clear Skin: Warm and Dry Neuro: Alert and Oriented X3 CV: RRR Additional Comments: Abdomen soft without tenderness;willing to try clear liquids. Critical Care Note - Critical Care Note Total Time (mins): 0 Course - Course Hematology/Chemistry: 03/25/17 09:40 03/25/17 09:40 Orders, Labs, Meds: Lab Review 03/25/17 03/25/17 03/25/17 09:40 09:40 09:40 WBC 8.99 RBC 4.29 Hgb 13.0 Hct 36.3 L MCV 84.6 MCH 30.3 MCHC 35.8 H RDW Coeff of Edward 13.2 Plt Count 197 Immature Gran % (Auto) 0.3 Neut % (Auto) 71.0 Lymph % (Auto) 21.8 Tama % (Auto) 5.9 Eos % (Auto) 0.6 Baso % (Auto) 0.4 Immature Gran # (Auto) 0.0 Neut # 6.4 Lymph # 2.0 Tama # 0.5 Eos # 0.1 Baso # 0.0 ESR 3 Sodium 136 Potassium 3.9 Chloride 106 Carbon Dioxide 21 Anion Gap 12.9 BUN 15 Creatinine 0.69 Estimated GFR (MDRD) 103.00 BUN/Creatinine Ratio 21.73 Glucose 86 Calcium 8.9 Total Bilirubin 0.5 AST 16 ALT 16 Alkaline Phosphatase 66 Total Protein 7.2 Albumin 3.9 Globulin 3.3 Albumin/Globulin Ratio 1.18 Serum , Qual Urine Color Urine Clarity Urine pH Ur Specific [place] Urine Protein Urine Glucose (UA) Urine Ketones Urine Blood Urine Nitrite Urine Bilirubin Urine Urobilinogen Ur Leukocyte Esterase Urine Microscopic RBC Urine Microscopic WBC Ur Squamous Epith Cells Amorphous Sediment Urine Bacteria Urine Test Influenza A (Rapid) Influenza B (Rapid) 03/25/17 03/25/17 03/25/17 09:40 09:45 09:52 WBC RBC Hgb Hct MCV MCH MCHC RDW Coeff of Edward Plt Count Immature Gran % (Auto) Neut % (Auto) Lymph % (Auto) Tama % (Auto) Eos % (Auto) Baso % (Auto) Immature Gran # (Auto) Neut # Lymph # Tama # Eos # Baso # ESR Sodium Potassium Chloride Carbon Dioxide Anion Gap BUN Creatinine Estimated GFR (MDRD) BUN/Creatinine Ratio Glucose Calcium Total Bilirubin AST ALT Alkaline Phosphatase Total Protein Albumin Globulin Albumin/Globulin Ratio Serum , Qual Positive Urine Color Yellow Urine Clarity Clear Urine pH 8.5 Ur Specific [place] 1.015 Urine Protein 1+ Urine Glucose (UA) Negative Urine Ketones 3+ Urine Blood Negative Urine Nitrite Negative Urine Bilirubin Negative Urine Urobilinogen 0.2 Ur Leukocyte Esterase Negative Urine Microscopic RBC 0-2 Urine Microscopic WBC 0-2 Ur Squamous Epith Cells 10-20 Amorphous Sediment Trace Urine Bacteria Trace Urine Test Influenza A (Rapid) Negative by naat Influenza B (Rapid) Negative by naat 03/25/17 09:52 WBC RBC Hgb Hct MCV MCH MCHC RDW Coeff of Edward Plt Count Immature Gran % (Auto) Neut % (Auto) Lymph % (Auto) Tama % (Auto) Eos % (Auto) Baso % (Auto) Immature Gran # (Auto) Neut # Lymph # Tama # Eos # Baso # ESR Sodium Potassium Chloride Carbon Dioxide Anion Gap BUN Creatinine Estimated GFR (MDRD) BUN/Creatinine Ratio Glucose Calcium Total Bilirubin AST ALT Alkaline Phosphatase Total Protein Albumin Globulin Albumin/Globulin Ratio Serum , Qual Urine Color Urine Clarity Urine pH Ur Specific [place] Urine Protein Urine Glucose (UA) Urine Ketones Urine Blood Urine Nitrite Urine Bilirubin Urine Urobilinogen Ur Leukocyte Esterase Urine Microscopic RBC Urine Microscopic WBC Ur Squamous Epith Cells Amorphous Sediment Urine Bacteria Urine Test Positive Influenza A (Rapid) Influenza B (Rapid) Orders Category Date Time Status CBC W/ AUTO DIFF Stat LAB 03/25/17 09:40 Completed CMP [COMPREHENSIVE METABOLIC PANEL] Stat LAB 03/25/17 09:40 Completed ESR Stat LAB 03/25/17 09:40 Completed FLU A & B MOLECULAR [FLU A/B MOLECULAR] Stat LAB 03/25/17 09:45 Completed MOLECULAR GROUP A STREP Stat LAB 03/25/17 09:45 Completed SERUM Stat LAB 03/25/17 09:40 Completed URINALYSIS C & S IF INDICATED Stat LAB 03/25/17 09:52 Completed URINE Stat LAB 03/25/17 09:52 Completed Famotidine Inj [Pepcid] MEDS 03/25/17 09:38 Discontinued 20 mg IVP ONCE STA Promethazine HCl [Phenergan 25 mg/ml Vial] MEDS 03/25/17 10:04 Discontinued 25 mg .ROUTE .STK-MED ONE Promethazine HCl [Phenergan 25 mg/ml Vial] 25 mg MEDS 03/25/17 09:39 Discontinued 0.9 % Sodium Chloride [Sodium Chloride] 50 ml IV ONCE Sodium Chloride 0.9% [Sodium Chloride] 1,000 ml MEDS 03/25/17 09:35 Discontinued IV BOLUS Medications Discontinued Medications Generic Name Dose Route Start Last Admin Trade Name Freq PRN Reason Stop Dose Admin Famotidine 20 mg 03/25/17 09:38 03/25/17 10:12 Pepcid IVP 03/25/17 09:39 20 mg ONCE STA Administration Promethazine HCl 25 mg/ Sodium 51 mls @ 75 mls/hr 03/25/17 09:39 03/25/17 10: 13 Chloride IV 03/25/17 10:19 75 mls/hr ONCE STA Administration Sodium Chloride 1,000 mls @ 500 mls/hr 03/25/17 09:35 03/25/17 10:00 Sodium Chloride IV 03/25/17 11:34 500 mls/hr BOLUS STA Administration Vital Signs: Temp Pulse Resp BP Pulse Ox 03/25/17 08:44 99.2 F 69 16 120/68 97 Departure - Departure Time of Disposition: 14:10 Disposition: HOME SELF-CARE Discharge Problem: Hyperemesis gravidarum Gastritis Qualifiers: Gastritis type: unspecified gastritis Chronicity: acute Gastritis bleeding: without bleeding Qualified Code(s): K29.00 - Acute gastritis without bleeding SLE (systemic lupus erythematosus) Qualifiers: Systemic lupus erythematosus type: unspecified Systemic lupus erythematosus organ involvement: unspecified Qualified Code(s): M32.9 - Systemic lupus erythematosus, unspecified Instructions: Hyperemesis Gravidarum (ED), Gastritis (ED), (ED) Condition: Good Pt referred to PMD for follow-up: Yes (1week) IPMP verified?: No Allergies/Adverse Reactions: Allergies No Known Allergies Allergy (Verified 03/25/17 08:55) Home Medications: Ambulatory Orders Pnv No.103/Folic/Om3s/Fish Oil [ Gummies] 1 each PO DAILY 08/19/16 Albuterol Sulfate [Proair Hfa] 2 puff IH ONCE PRN 03/25/17 Hydrocortisone [Hydrocortisone 2.5% Cream] 1 applic TP DIRECTED PRN 03/25/17 Hydroxychloroquine Sulfate [Plaquenil] 200 mg PO DAILY 03/25/17 Ketoconazole 120 ml TP DIRECTED 03/25/17 Lurasidone HCl [Latuda] 20 mg PO DAILY 03/25/17 Metronidazole 45 gm TP DIRECTED 03/25/17 Oxybutynin Chloride [Ditropan Xl] 10 mg PO DAILY 03/25/17
[2017-03-25] MEDS: SODIUM CHLORIDE 1,000 ML IV STA (10:00)
[2017-03-25] MEDS: PHENERGAN 25 MG/ML VIAL ONE (10:08)
[2017-03-25] MEDS: PEPCID IVP STA (10:12)
[2017-03-25] MEDS: PHENERGAN 25 MG/ML VIAL 25 MG in SODIUM CHLORIDE 50 ML IV STA (10:13)
== END 2017-03-25 14:42 | disposition home or self-care (01) ==
LOC: ED 08:44
DX: O21.0 Mild hyperemesis gravidarum (principal); Z3A.00 Weeks of gestation of pregnancy not specified; K29.00 Acute gastritis without bleeding; M32.9 Systemic lupus erythematosus, unspecified
CPT/HCPCS: 36415; 80053; 81001; 81025; 84703; 85025; 85651; 87502; 87651; 96361; 96365; 96375; 99283; 99284

== ENCOUNTER 2017-04-14 15:36 | Emergency (ER) ==
[2017-04-14 15:48] VITALS: BP 109/73; TEMP 100.2; BMI 31.5
--- NOTE | 2017-04-14 17:27 | ED.PDOC ---
General ED Provider: Dr. TRENTON MAGAÑA Chief Complaint: Respiratory Complaint Stated Complaint: flu like symptoms, cough Time Seen by Physician: 15:40 (9 weeks ) Mode of Arrival: Walk-In Information Source: Patient Exam Limitations: No limitations Primary Care Provider: RICCARDO ALAN Referred to ED by: Other (no resp distress ) Nursing and Triage Documentation Reviewed and Agree: Yes Reviewed sepsis parameters & appropriate labs ordered?: Yes (seen with tonja at all times ) System Inflammatory Response Syndrome: Not Applicable Sepsis Protocol: For patient's 13 years and over: Temp is 96.8 and below OR 101 and greater Pulse >90 BPM Resp >20/minute Acutely Altered Mental Status Are patient's symptoms suggestive of a new infection, such as: -Pneumonia -Skin, Soft Tissue -Endocarditis -UTI -Bone, Joint Infection -Implantable Device -Acute Abdominal Infection -Wound Infection -Meningitis -Blood Stream Catheter Infection -Unknown System Inflammatory Response Syndrome: Not Applicable Respiratory Complaint Exam - Respiratory Complaint/Exam Onset/Duration: 3 days Symptoms Are: Still present Timing: Intermittent Initial Severity: Mild Current Severity: Mild Location: Nose, Throat, Chest Character: Reports: Non-productive cough Aggravating: Reports: None Alleviating: Reports: Spontaneous resolution Associated Signs and Symptoms: Reports: URI, Nasal congestion. Denies: Rapid breathing, Dyspnea, Fever, Chills, Chest pain, Pleuritic chest pain, Wheezing, Hemoptysis, Dizziness, Calf pain, Calf swelling, Edema, Hoarseness, Sinus discomfort, Vomiting, Sore throat, Weight loss, Decreased oral intake, Increased thirst, Increased appetite, Increased urination History of Healthcare-Acquired Pneumonia: No Related Surgical History: Reports: None Pulmonary Embolism Risk Factors: None Cardiac Risk Factors: Reports: None Pseudomonas Risk Factors: Reports: None Tuberculosis Risk Factors: Reports: None Status Asthmaticus Risk Factors: Reports: None Home Oxygen Use: No Recent Stress Test: No Recent Echo/LV Function: No Current Antibiotic Use: No Current Asthma Medication Use: No Respiratory Distress: None Inadequate Respiratory Effort: No Dysphagia Present: No Stridor Present: No JVD Present: No Accessory Muscle Use: No Retractions: Not Present Diminished Breath Sounds: No Sinus Tenderness: None Grunting Respirations: No Kussmaul Respirations: No Differential Diagnoses: Pneumonia, Bronchitis, URI, Influenza, Lower Resp. Infection Review of Systems - Review Of Systems Constitutional: Reports: Malaise Eyes: Reports: No symptoms Ears, Nose, Mouth, Throat: Reports: No symptoms Respiratory: Reports: Cough Cardiac: Reports: No symptoms GI: Reports: No symptoms : Reports: No symptoms Musculoskeletal: Reports: No symptoms Skin: Reports: No symptoms Neurological: Reports: No symptoms Endocrine: Reports: No symptoms Hematologic/Lymphatic: Reports: No symptoms All Other Systems: Reviewed and Negative Past Medical History - Past Medical History Previously Healthy: Yes Endocrine: Reports: None Cardiovascular: Reports: None Respiratory: Reports: None Hematological: Reports: None Gastrointestinal: Reports: None Genitourinary: Reports: None Neuro/Psych: Reports: None Musculoskeletal: Reports: None, Other (Lupus) Cancer: Reports: None Last Menstrual Period: - Surgical History General Surgical History: Reports: Cholecystectomy - Family History Family History: Reports: None - Social History Smoking Status: Current every day smoker, Heavy tobacco smoker Hx Substance Use: No Alcohol Screening: None Physical Exam - Physical Exam Appearance: Well-appearing, No pain distress, Well-nourished Eyes: AYE, EOMI, Conjunctiva clear ENT: Ears normal, Nose normal, Oropharynx normal Respiratory: Airway patent, Breath sounds clear, Breath sounds equal, Respirations nonlabored Cardiovascular: RRR, Pulses normal, No rub, No murmur GI/: Soft, Nontender, No masses, Bowel sounds normal, No Organomegaly Musculoskeletal: Normal strength, ROM intact, No edema, No calf tenderness Skin: Warm, Dry, Normal color Neurological: Sensation intact, Motor intact, Reflexes intact, Cranial nerves intact, Alert, Oriented Psychiatric: Affect appropriate, Mood appropriate Critical Care Note - Critical Care Note Total Time (mins): 0 Course - Course Hematology/Chemistry: 04/14/17 16:30 04/14/17 16:30 Orders, Labs, Meds: Lab Review 04/14/17 04/14/17 04/14/17 16:00 16:30 16:30 WBC 8.40 RBC 3.97 L Hgb 12.1 Hct 34.3 L MCV 86.4 MCH 30.5 MCHC 35.3 RDW Coeff of Edward 13.2 Plt Count 163 Immature Gran % (Auto) 0.2 Neut % (Auto) 88.9 Lymph % (Auto) 5.6 L [place] % (Auto) 4.9 Eos % (Auto) 0.2 Baso % (Auto) 0.2 Immature Gran # (Auto) 0.0 Neut # (Auto) 7.5 H Lymph # (Auto) 0.5 L [place] # (Auto) 0.4 Eos # (Auto) 0.0 Baso # (Auto) 0.0 Sodium 135 L Potassium 3.9 Chloride 103 Carbon Dioxide 21 Anion Gap 14.9 BUN 10 Creatinine 0.63 Estimated GFR (MDRD) 114.00 BUN/Creatinine Ratio 15.87 Glucose 89 Lactic Acid Calcium 9.2 Total Bilirubin 0.5 AST 13 L ALT 14 Alkaline Phosphatase 64 Total Protein 6.9 Albumin 3.6 Globulin 3.3 Albumin/Globulin Ratio 1.09 Procalcitonin Influ A Molecular Assay Negative by naat Influ B Molecular Assay Negative by naat 04/14/17 04/14/17 16:30 16:30 WBC RBC Hgb Hct MCV MCH MCHC RDW Coeff of Edward Plt Count Immature Gran % (Auto) Neut % (Auto) Lymph % (Auto) [place] % (Auto) Eos % (Auto) Baso % (Auto) Immature Gran # (Auto) Neut # (Auto) Lymph # (Auto) [place] # (Auto) Eos # (Auto) Baso # (Auto) Sodium Potassium Chloride Carbon Dioxide Anion Gap BUN Creatinine Estimated GFR (MDRD) BUN/Creatinine Ratio Glucose Lactic Acid 7.3 Calcium Total Bilirubin AST ALT Alkaline Phosphatase Total Protein Albumin Globulin Albumin/Globulin Ratio Procalcitonin < 0.05 Influ A Molecular Assay Influ B Molecular Assay Orders Category Date Time Status BLOOD CULTURE Stat LAB 04/14/17 16:23 Received CBC W/ AUTO DIFF Stat LAB 04/14/17 16:30 Completed COMPREHENSIVE METABOLIC PANEL Stat LAB 04/14/17 16:30 Completed FLU A/B MOLECULAR Stat LAB 04/14/17 16:00 Completed LACTIC ACID Stat LAB 04/14/17 16:30 Completed MOLECULAR GROUP A STREP Stat LAB 04/14/17 16:00 Completed PROCALCITONIN Stat LAB 04/14/17 16:30 Completed URINALYSIS C & S IF INDICATED Stat LAB 04/14/17 17:20 Ordered Vital Signs: Temp Pulse Resp BP Pulse Ox 04/14/17 15:37 100.2 F H 105 H 20 109/73 94 L Departure - Departure Time of Disposition: 17:27 Disposition: HOME SELF-CARE Discharge Problem: Viral syndrome Instructions: Viral Syndrome (ED) Condition: Good Pt referred to PMD for follow-up: Yes IPMP verified?: No Additional Instructions: Please call your Family Physician as soon as possible to schedule a follow-up appointment. Allergies/Adverse Reactions: Allergies No Known Allergies Allergy (Verified 04/14/17 15:48) Home Medications: Ambulatory Orders Pnv No.103/Folic/Om3s/Fish Oil [ Gummies] 1 each PO DAILY 08/19/16 Albuterol Sulfate [Proair Hfa] 2 puff IH ONCE PRN 03/25/17 Famotidine [Pepcid] 20 mg PO BIDAC #20 tablet 03/25/17 Hydrocortisone [Hydrocortisone 2.5% Cream] 1 applic TP DIRECTED PRN 03/25/17 Hydroxychloroquine Sulfate [Plaquenil] 200 mg PO BID 03/25/17 Ketoconazole 120 ml TP DIRECTED 03/25/17 Lurasidone HCl [Latuda] 20 mg PO DAILY 03/25/17 Metronidazole 45 gm TP DIRECTED 03/25/17 Oxybutynin Chloride [Ditropan Xl] 10 mg PO DAILY 03/25/17 Ondansetron [Zofran Odt] 4 mg PO TID 04/14/17
== END 2017-04-14 17:34 | disposition home or self-care (01) ==
LOC: ED 15:36
DX: B34.9 Viral infection, unspecified (principal); F17.210 Nicotine dependence, cigarettes, uncomplicated
CPT/HCPCS: 36415; 80053; 83605; 84145; 85025; 87040; 87502; 87651; 99283

== ENCOUNTER 2017-07-01 09:01 | Outpatient (CLI) | END 2017-07-01 09:02 | disposition home or self-care (01) | LOC: LAB 09:01 | DX: M35.9 Systemic involvement of connective tissue, unspecified (principal); O09.299 Supervision of pregnancy with other poor reproductive or obstetric history, unspecified trimester | CPT/HCPCS: 36415; 82947 ==

== ENCOUNTER 2017-07-15 08:04 | Emergency (ER) ==
[2017-07-15 08:12] VITALS: BP 120/77; TEMP 97.4; BMI 34.4
--- NOTE | 2017-07-15 08:46 | ED.PDOC ---
General ED Provider: Dr. DALLAS BOUDREAUX Chief Complaint: Sore Throat Stated Complaint: CC: Sore Throat. HPI:Awakened today with extremely sore throat-burning type of pain. Mild dysphagia. Hx of tonsillar stones previously passed. Fearful she has the flu. To see ENT specialist next week. DID NOT ADVISE HER OBGYN of her current illness. Denies nausea or vomiting.Also has greenish colored nasal drainage.Denies fever, chills or night sweats. Is 22 weeks . Currently also treated for Vaginal bacterial infection suspected GpB beta strep infection ( was told she would need treatment at time of her Labor) Time Seen by Physician: 08:20 Mode of Arrival: Walk-In Information Source: Patient Exam Limitations: No limitations Primary Care Provider: RICCARDO ALAN Nursing and Triage Documentation Reviewed and Agree: Yes Reviewed sepsis parameters & appropriate labs ordered?: Yes System Inflammatory Response Syndrome: Not Applicable Sepsis Protocol: For patient's 13 years and over: Temp is 96.8 and below OR 101 and greater Pulse >90 BPM Resp >20/minute Acutely Altered Mental Status Are patient's symptoms suggestive of a new infection, such as: -Pneumonia -Skin, Soft Tissue -Endocarditis -UTI -Bone, Joint Infection -Implantable Device -Acute Abdominal Infection -Wound Infection -Meningitis -Blood Stream Catheter Infection -Unknown EENT Complaint Exam - Throat Complaint/Exam Onset/Duration: 24 hrs Symptoms Are: Still present Timimg: Constant Initial Severity: Moderate Current Severity: Mild Aggravating: Reports: Eating (drinking ) Alleviating: Reports: Upright position Associated Signs and Symptoms: Reports: Dysphagia, Cough, Nasal congestion. Denies: Fever, Drooling, Foreign body sensation, Chills, Wheezing, Hoarseness, Sinus discomfort, Difficulty breathing, Lethargy, Irritability, Decreased activity, Vomiting, Diarrhea, Decreased hearing, Ear drainage Related History: Denies: Similar Episode Uvula Midline: Yes Bonny-tonsillar Fluctuence: No Scarlatinaform Rash Present: No Lesions: Absent: Lip, Gums, Tongue, Buccal Mucosa, Pharynx Exanthem: Absent: Lip, Gums, Tongue, Buccal Mucosa, Pharynx Vesicles: Absent: Lip, Gums, Tongue, Buccal Mucosa, Pharynx Stridor Present: No Sinus Tenderness Present: No Tonsillar Hypertrophy Present: Yes Tonsillar Exudate Present: No Bonny-tonsillar Swelling Present: Yes (R>L) Adenopathy Present: No Splenomegaly Present: No Differential Diagnoses: Tonsillitis, URI Review of Systems - Review Of Systems Constitutional: Reports: No symptoms Eyes: Reports: No symptoms Ears, Nose, Mouth, Throat: Reports: Nose discharge, Throat pain. Denies: Ear pain, Ear discharge, Nose pain, Epistaxis, Mouth pain, Mouth swelling, Loose teeth, Throat swelling Respiratory: Reports: No symptoms Cardiac: Reports: No symptoms GI: Reports: No symptoms : Reports: No symptoms Musculoskeletal: Reports: No symptoms Skin: Reports: No symptoms Neurological: Reports: No symptoms Endocrine: Reports: No symptoms Hematologic/Lymphatic: Reports: No symptoms All Other Systems: Reviewed and Negative Past Medical History - Past Medical History Previously Healthy: Yes Endocrine: Reports: None Cardiovascular: Reports: None Respiratory: Reports: None Hematological: Reports: None Gastrointestinal: Reports: None Genitourinary: Reports: None Neuro/Psych: Reports: None Musculoskeletal: Reports: None, Other (Lupus) Cancer: Reports: None Last Menstrual Period: 6 months preg. - Surgical History General Surgical History: Reports: Cholecystectomy - Family History Family History: Reports: None - Social History Smoking Status: Current every day smoker, Heavy tobacco smoker Hx Substance Use: No Alcohol Screening: None Physical Exam - Physical Exam Appearance: Well-appearing, No pain distress, Well-nourished Ill-appearing: Mild Pain Distress: None Eyes: AYE, EOMI, Conjunctiva clear ENT: Ears normal, Nose normal, Oropharynx normal, Erythema (Pharynx and Tonsils but no exudate or post nasal drainage) Respiratory: Airway patent, Breath sounds clear, Breath sounds equal, Respirations nonlabored Cardiovascular: RRR, Pulses normal, No rub, No murmur GI/: Soft, Nontender, No masses, Bowel sounds normal, No Organomegaly Musculoskeletal: Normal strength, ROM intact, No edema, No calf tenderness Skin: Warm, Dry, Normal color Neurological: Sensation intact, Motor intact, Reflexes intact, Cranial nerves intact, Alert, Oriented Psychiatric: Affect appropriate, Mood appropriate Re-Evaluation - Re-Evaluation Time of Re-Evaluation: 09:50 (States feeling better ) Status: Improved Vital Signs Stable: Yes Appearance: NAD Lungs: Clear Skin: Warm and Dry Neuro: Alert and Oriented X3 CV: RRR Critical Care Note - Critical Care Note Total Time (mins): 0 Course - Course Hematology/Chemistry: 07/15/17 09:00 07/15/17 09:00 Vital Signs: Temp Pulse Resp BP Pulse Ox 07/15/17 08:07 97.4 F L 83 16 120/77 98 Departure - Departure Time of Disposition: 10:05 Disposition: HOME SELF-CARE Discharge Problem: URI (upper respiratory infection), Pharyngitis Instructions: Pharyngitis (ED) Condition: Good Pt referred to PMD for follow-up: Yes ([facility] next Wednesday for regular appointment) IPMP verified?: No Additional Instructions: Take current antibiotics for Vaginal infection Rinse throat with warm salt water Check with your OB for recommendations on additional therapy Allergies/Adverse Reactions: Allergies No Known Allergies Allergy (Verified 07/15/17 08:11) Home Medications: Ambulatory Orders Pnv No.103/Folic/Om3s/Fish Oil [ Gummies] 1 each PO DAILY 08/19/16 Albuterol Sulfate [Proair Hfa] 2 puff IH ONCE PRN 03/25/17 Famotidine [Pepcid] 20 mg PO BIDAC #20 tablet 03/25/17 Hydrocortisone [Hydrocortisone 2.5% Cream] 1 applic TP DIRECTED PRN 03/25/17 Hydroxychloroquine Sulfate [Plaquenil] 200 mg PO BID 03/25/17 Ketoconazole 120 ml TP DIRECTED 03/25/17 Metronidazole 45 gm TP DIRECTED 03/25/17 Ondansetron [Zofran Odt] 4 mg PO TID 04/14/17 Amoxicillin 875 mg PO BID 07/15/17 Terconazole 20 gm VG DAILY 07/15/17 Disposition Discussed With: Patient, Family
== END 2017-07-15 10:10 | disposition home or self-care (01) ==
LOC: ED 08:04
DX: J06.9 Acute upper respiratory infection, unspecified (principal); J02.9 Acute pharyngitis, unspecified; Z3A.22 22 weeks gestation of pregnancy; F17.210 Nicotine dependence, cigarettes, uncomplicated
CPT/HCPCS: 36415; 80048; 81001; 85025; 87502; 87651; 99283

== ENCOUNTER 2017-12-03 10:05 | Outpatient (CLI) ==
--- NOTE | 2017-12-03 11:03 | DI ---
EXAM: Three views of the lumbar spine. History: Lower back pain. Findings: No acute fracture or subluxation of the lumbar spine. Disc space heights are preserved. No abnormal calcifications or radiopaque foreign bodies. Impression: Unremarkable exam
--- NOTE | 2017-12-03 11:04 | DI ---
EXAM: Two views of the right knee. History: Right knee pain. Findings: No acute fracture or dislocation. No abnormal calcifications or radiopaque foreign bodies . Joint spaces are preserved. Impression: Unremarkable exam
--- NOTE | 2017-12-03 11:04 | DI ---
EXAM: Two views of the left knee HISTORY: Polyarthralgia. COMPARISON: Right knee x-rays same day FINDINGS: Medial and lateral compartments are normal. There is no lytic or blastic lesion. There is no displaced fracture or dislocation. Patella is normal in appearance and position. The soft tissu es are normal. IMPRESSION: No acute abnormality or displaced fracture of the left knee.
== END 2017-12-03 10:06 | disposition home or self-care (01) ==
LOC: RAD 10:05
PROVIDERS: ATTEND Internal Medicine Rheumatology
DX: M25.50 Pain in unspecified joint (principal); M25.561 Pain in right knee; M54.5 Low back pain

== ENCOUNTER 2018-06-15 13:18 | Outpatient (CLI) | END 2018-06-15 13:32 | disposition short-term general hospital (02) | LOC: AMBL 13:18 | PROVIDERS: ATTEND Internal Medicine | DX: R55 Syncope and collapse (principal); F10.129 Alcohol abuse with intoxication, unspecified; R41.82 Altered mental status, unspecified ==